=== PATIENT | female | born 1980 | race Caucasian/White ===

== ENCOUNTER 2022-12-02 07:15 | Outpatient (OUT) | payer BC, SELFPAY ==
[2022-12-03 01:06] LABS: Progesterone 11.5 ng/mL (.)
== END 2022-12-02 07:16 ==
PROVIDERS: Visit Provider Obstetrics & Gynecology
DX: E34.9 Endocrine disorder, unspecified (principal)
CPT/HCPCS: 36415; 84144

== ENCOUNTER 2023-01-05 08:24 | Outpatient (OUT) | payer BC, SELFPAY ==
[2023-01-05 08:59] LABS: HCG Quantitative 11 mIU/mL
== END 2023-01-05 08:25 | disposition home or self-care (01) ==
LOC: LAB 08:26
PROVIDERS: Visit Provider Obstetrics & Gynecology
DX: Z34.00 Encounter for supervision of normal first pregnancy, unspecified trimester (principal)
CPT/HCPCS: 36415; 84702

== ENCOUNTER 2023-01-08 07:47 | Outpatient (OUT) | payer BC, SELFPAY ==
[2023-01-08 10:53] LABS: HCG Quantitative 2 mIU/mL
== END 2023-01-08 07:48 | disposition home or self-care (01) ==
LOC: LAB 07:48
PROVIDERS: Visit Provider Obstetrics & Gynecology
DX: N97.9 Female infertility, unspecified (principal)
CPT/HCPCS: 36415; 84702